=== PATIENT | male | born 1995 | race Caucasian/White ===

== ENCOUNTER 2018-11-20 10:07 | Emergency (ER) | payer OTHER ==
[2018-11-20] MEDS: IBUPROFEN 600 MG TAB PO (11:31)
== END 2018-11-20 12:33 | disposition home or self-care (01) ==
LOC: FTE 10:07
DX: S93.402A Sprain of unspecified ligament of left ankle, initial encounter (principal); W50.2XXA Accidental twist by another person, initial encounter; Y92.310 Basketball court as the place of occurrence of the external cause
CPT/HCPCS: 73610; 99283-25